=== PATIENT | female | born 1935 | race Caucasian/White ===

== ENCOUNTER 2018-10-18 15:14 | Emergency (ER) | payer OTHER ==
--- NOTE | 2018-10-18 15:21 | PDOC ---
History of Present Illness - General Stated Complaint: WEAKNESS Time Seen by Provider: 10/18/18 15:20 - History of Present Illness Initial Comments: 10/18/18 15:21 Ms. Wade is an 83 yo female w/ pmh of HTN, HLD, Essential Tremor, Depression, Frequent UTIs, C Diff. in the past BIBA from [facility] who presents for evaluation of several day history of generalized weakness. Patient reports she almost fell down today upon standing as she felt so weak, and that she has likewise spent the last 3 days mostly in bed because of this. The patient denies chest pain, shortness of breath, headache and dizziness. Denies fever, chills, nausea, vomit, diarrhea and constipation. Denies dysuria, frequency, urgency and hematuria. Past History - Past Medical History Allergies/Adverse Reactions: Allergies Allergy/AdvReac Type Severity Reaction Status Date / Time No Known Allergies Allergy Verified 10/18/18 15:26 Home Medications: Ambulatory Orders Acetaminophen [Tylenol] 650 mg PO QID 10/18/18 Acidoph/L.bulg/Bif.b/S.thermop [Teresa-Bid Caplet] 1 tab PO TID 10/18/18 Carbidopa/Levodopa *Cr* 25/100 [Sinemet *Cr* 25/100 -] 1 tab PO QID 10/18/18 Fluticasone Prop 0.05% Nasal [Flonase -] 1 - 2 spray NS DAILY 10/18/18 Folic Acid 1 mg PO DAILY 10/18/18 K-Tab ER 10/18/18 Lidocaine 5% Patch 10/18/18 Mirtazapine [Remeron -] 15 mg PO HS 10/18/18 Multivit,Tx with Iron,Minerals 10/18/18 Polyethylene Glycol 1450 17 grams PO BID PRN 10/18/18 Primidone 50 mg PO DAILY 10/18/18 Primidone 50 mg PO HS 10/18/18 Propranolol HCl 10 mg PO 10/18/18 metroNIDAZOLE [Flagyl -] 500 mg PO ONCE 10/18/18 Review of Systems - Review of Systems Comments:: 10/18/18 15:21 GENERAL/CONSTITUTIONAL: +Generalized weakness. No fever or chills. HEAD, EYES, EARS, NOSE AND THROAT: No change in vision. No ear pain or discharge. No sore throat. CARDIOVASCULAR: No chest pain or shortness of breath RESPIRATORY: No cough, wheezing, or hemoptysis. GASTROINTESTINAL: No nausea, vomiting, diarrhea or constipation. GENITOURINARY: No dysuria, frequency, or change in urination. MUSCULOSKELETAL: No joint or muscle swelling or pain. No neck or back pain. SKIN: No rash NEUROLOGIC: No headache, vertigo, loss of consciousness, or change in strength/ sensation. ENDOCRINE: No increased thirst. No abnormal weight change HEMATOLOGIC/LYMPHATIC: No anemia, easy bleeding, or history of blood clots. ALLERGIC/IMMUNOLOGIC: No hives or skin allergy. *Physical Exam - Physical Exam Comments: 10/18/18 15:21 GENERAL: +Essential tremor noted. Awake, alert, and fully oriented, in no acute distress HEAD: No signs of trauma, normocephalic, atraumatic EYES: PERRLA, EOMI, sclera anicteric, conjunctiva clear ENT: Auricles normal inspection, hearing grossly normal, nares patent, oropharynx clear without exudates. Moist mucosa NECK: Normal ROM, supple, no lymphadenopathy, JVD, or masses LUNGS: No distress, speaks full sentences, clear to auscultation bilaterally HEART: Regular rate and rhythm, normal S1 and S2, no murmurs, rubs or gallops, peripheral pulses normal and equal bilaterally. ABDOMEN: Soft, nontender, normoactive bowel sounds. No guarding, no rebound. No masses EXTREMITIES: Normal inspection, Normal range of motion, no edema. No clubbing or cyanosis. NEUROLOGICAL: Cranial nerves II through XII grossly intact. Normal speech, no focal sensorimotor deficits SKIN: Warm, Dry, normal turgor, no rashes or lesions noted. ED Treatment Course - LABORATORY CBC & Chemistry Diagram: 10/18/18 15:44 10/18/18 15:44 Medical Decision Making - Medical Decision Making 10/18/18 18:12 Ms. Wade is an 83 yo female w/ pmh as described who presents for evaluation of symptoms of weakness. Patient evaluation sent for including cardiac labs, EKG, and imaging. 10/18/18 18:23 EKG normal. CXR normal. Laboratory workup pending. 10/18/18 18:34 All labs grossly wnl as below. No concerning findings found at this time. Will discharge patient to home w/ instructions to f/u w/ PCP outpatient for further evaluation. Laboratory Results - last 24 hr 10/18/18 10/18/18 10/18/18 15:44 15:44 15:44 WBC 8.2 RBC 4.16 Hgb 12.7 Hct 36.0 MCV 86.5 MCH 30.6 MCHC 35.3 RDW 13.9 Plt Count 424 MPV 7.5 Absolute Neuts (auto) 6.1 Neutrophils % 73.7 Lymphocytes % 18.9 Monocytes % 5.7 Eosinophils % 1.1 Basophils % 0.6 Nucleated RBC % 0 Sodium 140 Potassium 4.6 Chloride 104 Carbon Dioxide 28 Anion Gap 8 BUN 17 Creatinine 0.7 Creat Clearance w eGFR > 60 Random Glucose 102 Calcium 8.4 L Total Bilirubin 0.3 AST 16 ALT 7 L Alkaline Phosphatase 136 H Creatine Kinase 57 Troponin I < 0.02 Total Protein 6.7 Albumin 3.0 L Urine Color Urine Appearance Urine pH Ur Specific Benton Urine Protein Urine Glucose (UA) Urine Ketones Urine Blood Urine Nitrite Urine Bilirubin Urine Urobilinogen Ur Leukocyte Esterase Blood Type Cancelled Antibody Screen Cancelled 10/18/18 17:30 WBC RBC Hgb Hct MCV MCH MCHC RDW Plt Count MPV Absolute Neuts (auto) Neutrophils % Lymphocytes % Monocytes % Eosinophils % Basophils % Nucleated RBC % Sodium Potassium Chloride Carbon Dioxide Anion Gap BUN Creatinine Creat Clearance w eGFR Random Glucose Calcium Total Bilirubin AST ALT Alkaline Phosphatase Creatine Kinase Troponin I Total Protein Albumin Urine Color Yellow Urine Appearance Clear Urine pH 5.0 Ur Specific Benton 1.019 Urine Protein Negative Urine Glucose (UA) Negative Urine Ketones Trace H Urine Blood Negative Urine Nitrite Negative Urine Bilirubin Negative Urine Urobilinogen Negative Ur Leukocyte Esterase Negative Blood Type Antibody Screen *DC/Admit/Observation/Transfer Diagnosis at time of Disposition: Weakness - Discharge Dispostion Disposition: ALF FACILITY - Referrals Referrals: John Middleton MD [Primary Care Provider] - - Patient Instructions Printed Discharge Instructions: DI for Muscle Weakness Additional Instructions: You were evaluated today in the ER for your weakness. We evaluated you with EKG , Chest Xray, and blood and urine labs and found no emergent conditions. You may follow-up with primary care provider for further evaluation. Return to ER if any fever, chills, pain, or other concerning symptoms. - Post Discharge Activity
[2018-10-18] MEDS ORDERED: SODIUM CHLORIDE 1,000 ML IV STA (15:32)
[2018-10-18 15:37] VITALS: BMI 21.2
[2018-10-18 16:26] LABS: BASO % 0.6 % (0-2.0); EOS % 1.1 % (0-4.5); HEMOGLOBIN 12.7 GM/dL (10.7-15.3); LYMPH % 18.9 % (8-40); MCH 30.6 pg (25.7-33.7); MCHC 35.3 g/dl (32.0-36.0); MEAN CELL VOLUME 86.5 fl (80-96); MEAN PLT VOLUME 7.5 fl (7.5-11.1); MONO % 5.7 % (3.8-10.2); NEUT % 73.7 % (42.8-82.8); PLATELET COUNT 424 K/MM3 (134-434); RBC 4.16 M/mm3 (3.60-5.2); RDW 13.9 % (11.6-15.6); WHITE BLOOD COUNT 8.2 K/mm3 (4.0-10.0)
--- NOTE | 2018-10-18 16:29 | PDOC ---
Attending Attestation - Resident Resident Name: Don Salgado - ED Attending Attestation I have performed the following: I have examined & evaluated the patient, The case was reviewed & discussed with the resident, I agree w/resident's findings & plan - HPI HPI: 10/18/18 16:25 83-year-old female from [facility] with multiple medical problems including frequent UTIs and C. difficile currently on antibiotics for UTI for the last 2 weeks requested to be seen in the hospital today for 3 weeks of progressive generalized weakness, no focal complaints other than suprapubic discomfort, no fevers or chills, no chest pain or shortness of breath, no vomiting. - Physicial Exam PE: 10/18/18 16:27 Vital signs normal, afebrile Well-appearing, pleasant elderly woman oriented and conversant, resting tremor Dry mucosa Heart is regular with 2/6 systolic ejection murmur, lungs are clear Abdomen is soft/nontender/nondistended, slight right suprapubic discomfort to palpation without guarding or rebound, no CVA tenderness Trace pretibial edema bilaterally without calf tenderness Skin is intact - Medical Decision Making 10/18/18 16:28 83-year-old female from [facility] with multiple medical problems currently on antibiotics for UTI resents with nonspecific generalized weakness for 2 weeks, hemodynamically stable without evidence of SIRS or sepsis, no focal findings on examination. Rule out metabolic versus infectious process, no cardiopulmonary complaints or findings to suggest acute process. Labs, urinalysis IV fluids Chest x-ray, EKG Reassess. If above is within normal limits, consider discharge back to [facility] for further monitoring.
[2018-10-18 17:05] LABS: ALK PHOS 136 U/L (45-117); ANION GAP 8 MMOL/L (8-16); BILIRUBIN,TOTAL 0.3 mg/dL (0.2-1); BLOOD UREA NITROGEN 17 mg/dL (7-18); CALCIUM 8.4 mg/dL (8.5-10.1); CHLORIDE 104 mmol/L (98-107); CO2 28 mmol/L (21-32); CREATININE 0.7 mg/dL (0.55-1.3); GLUCOSE,RANDOM 102 mg/dL (74-106); POTASSIUM 4.6 mmol/L (3.5-5.1); SGOT/AST 16 U/L (15-37); SGPT/ALT 7 U/L (13-61); SODIUM 140 mmol/L (136-145); TOT PROT 6.7 g/dl (6.4-8.2)
[2018-10-18 18:32] LABS: URINE APPEARANCE CLEAR; URINE BILIRUBIN NEGATIVE (<2.0 mg/dL); URINE COLOR YELLOW; URINE GLUCOSE (UA) NEGATIVE (NEGATIVE); URINE KETONE TRACE (NEGATIVE); URINE LEUK ESTERASE NEGATIVE (NEGATIVE); URINE NITRITE NEGATIVE (NEGATIVE); URINE PROTEIN NEGATIVE (NEGATIVE); URINE UROBILINOGEN NEGATIVE mg/dL (0.2-1.0)
[2018-10-18 20:17] VITALS: BP 124/57; PULSE 83; TEMP 98
--- NOTE | 2018-10-19 09:51 | EKG ---
Test Reason : Blood Pressure : / mmHG Vent. Rate : 067 BPM Atrial Rate : 067 BPM P-R Int : 166 ms QRS Dur : 086 ms QT Int : 416 ms P-R-T Axes : 039 -17 -10 degrees QTc Int : 439 ms POOR DATA QUALITY, INTERPRETATION MAY BE ADVERSELY AFFECTED NORMAL SINUS RHYTHM MINIMAL VOLTAGE CRITERIA FOR LVH, MAY BE NORMAL VARIANT NONSPECIFIC ST AND T WAVE ABNORMALITY ABNORMAL ECG NO PREVIOUS ECGS AVAILABLE Confirmed by BILL ERWIN, MIGUEL ([id number]) on 10/19/2018 9:50:39 AM Referred By: Confirmed By:MIGUEL KHAN MD
== END 2018-10-18 20:36 ==
LOC: JER 15:14
PROC: 3E0337Z Introduction of Electrolytic and Water Balance Substance into Peripheral Vein, Percutaneous Approach (ICD-10-PCS; principal; 2018-10-18)
DX: R53.1 Weakness (principal); I10 Essential (primary) hypertension; E78.5 Hyperlipidemia, unspecified; F32.9 Major depressive disorder, single episode, unspecified; Z87.440 Personal history of urinary (tract) infections; G25.0 Essential tremor
CPT/HCPCS: 36415; 71045-TC-FY; 80053; 81003; 82550; 84484; 85025; 87086; 93005; 93010; 96360; 99284-25; J7030